=== PATIENT | female | born 1965 | race Two or more races ===

== ENCOUNTER 2019-08-21 07:27 | Day surgery (SDC) | payer OTHER ==
[2019-08-21] VITALS (8 sets, daily range): BP systolic 130–143; BP diastolic 58–86
[~2019-08-21] VITALS: Ht 170.2 cm; Wt 122.5 kg
[~2019-08-21 07:27] MED LIST: LR 1000ml 1,000 ML IVLG SCH
--- NOTE | 2019-08-21 07:40 | Short Stay Surgery H&P ---
History of Present Illness History of Present Illness Chief Complaint Abdominal pains/GERDs.nausea and vomiting HPI Sara Roger is a 54 year old female who was admitted on for Abdominal Pain/ GERDs/nausea/vomiting Patient History Allergies: Coded Allergies: No Known Allergies (Unverified , 08/20/19) Past Surgeries: (1) History of tubal ligation (2) History of hysterectomy (3) History of cyst of breast Review of Systems Cardiovascular: Reports: no symptoms Respiratory: Reports: no symptoms Skeletal: Reports: trauma Gastrointestinal: Reports: gastro esophageal reflux disease Genitourinary: Reports: no symptoms Neurologic: Reports: no symptoms Endocrine: Reports: no symptoms Hematologic: Reports: no symptoms Physical Exam Skin: normal HENT: normal Heart: normal Lungs: normal Abdomen: abnormal Extremities: normal Genitourinary: normal Plan Plan of Care Upper GI endoscopy and biopsy. Preop Interventions None Summary of Findings See the reports Attestation Are the patient's medical conditions optimized for surgery? Attestation Response: yes Seema Ellis MD Aug 21, 2019 07:40
[2019-08-21] MEDS ORDERED: LR 1000ml 1,000 ML IVLG SCH (07:41)
--- NOTE | 2019-08-21 07:41 | Pre-Procedure Note/Attestation ---
Pre-Procedure Note/Attestation Complete Prior to Procedure Planned Procedure: left Procedure Narrative: Examination of the upper GI tract via endoscope Indications for Procedure Pre-Operative Diagnosis: R/O peptic ulcer/gastritis/esophagitis Attestation I attest that I discussed the nature of the procedure; its benefits; risks and complications; and alternatives (and the risks and benefits of such alternatives ), prior to the procedure, with the patient (or the patient's legal career services representative). I attest that, if there was a reasonable possibility of needing a blood transfusion, the patient (or the patient's legal career services representative) was given the [facility] standardized written summary, pursuant to the Sunil Bensley Blood Safety Act ([place] Health and Safety Code # 1645, as amended). I attest that I re-evaluated the patient just prior to the surgery and that there has been no change in the patient's H&P, except as documented below: Seema Ellis MD Aug 21, 2019 07:41
--- NOTE | 2019-08-21 07:44 | Anethesia Preoperative Eval ---
Anesthesia Pre-op PMH/ROS General Date of Evaluation: Aug 21, 2019 Time of Evaluation: 07:43 Anesthesiologist: jannette ASA Score: ASA 2 Mallampati Score Class I : Soft palate, uvula, fauces, pillars visible Class II: Soft palate, uvula, fauces visible Class III: Soft palate, base of uvula visible Class IV: Only hard plate visible Mallampati Classification: Class II Surgeon: ning Diagnosis: abdominal pain Surgical Procedure: egd Anesthesia History: none Social History: smoking - nonsmoker Family History: no anesthesia problems Allergies: Coded Allergies: No Known Allergies (Unverified , 08/21/19) Medications: see eMAR Patient NPO?: Yes Past Medical History Gastrointestinal/Genitourinary: Reports: GERD Other: obesity PSxH Narrative: breast sx, tubal ligation Anesthesia Pre-op Phys. Exam Physician Exam Constitutional: NAD Neurologic: CN 2-12 intact Cardiovascular: RRR Respiratory: CTA Gastrointestinal: S/NT/ND Airway Exam Mallampati Score: Class II MO: limited Neck: short TMD: 2fb ROM: limited Anesthesia Pre-op A/P Risk Assessment & Plan Assessment: asa2 Plan: mac Status Change Before Surgery: No Pre-Antibiotics Drug: Radha Carter MD Aug 21, 2019 07:44
[2019-08-21] MEDS ORDERED: DiphenhydrAMINE 50mg/ml Inj IVP PRN (07:45)
[2019-08-21] MEDS ORDERED: fentaNYL 100 mcg/2 mL IV PRN (07:45)
[2019-08-21] MEDS ORDERED: Atropine Inj 1mg/10ml Syr IV PRN (07:45)
[2019-08-21] MEDS ORDERED: Midazolam 2mg/2ml Inj IVP PRN (07:45)
--- NOTE | 2019-08-21 07:56 | Discharge Instructions ---
Discharge Instructions Discharge Instructions Follow up with: The reports will be sent to carpenter's assistant, no follow up in the office. For Congestive Heart Failure Reminder Report to your physician any weight gain of 5 pounds or more in one week. Seema Ellis MD Aug 21, 2019 07:56
[2019-08-21] MEDS ORDERED: ADVIL200 MG ORAL (07:57)
[2019-08-21] MEDS ORDERED: IBUPROFEN600 MG ORAL (07:57)
[2019-08-21] MEDS ORDERED: LR 1000ml ONE (08:00)
[2019-08-21] MEDS ORDERED: Propofol 200mg/20ml IV ONE ×2 (08:00)
[2019-08-21] MEDS ORDERED: Lidocaine 1% MPF 10mg/ml 5ml ONE (08:00)
[2019-08-21] MEDS ORDERED: DULCOLAX STOOL100 M1 PO (08:09)
[2019-08-21] MEDS ORDERED: GERD MED PO (08:09)
--- NOTE | 2019-08-21 08:32 | Endoscopy Procedure Note ---
Endoscopy Procedure Note General Indication for Procedure: Abdominal pain, nausea,vomiting,heartburn Procedures Performed: EGD - Mild gastriis of the antrum C/W antritis, biopsied. 4mm fundic/hyperplastic polyp in fundus biospied. Specimen: yes Pt Tolerated Procedure Well: Yes Estimated Blood Loss: none Anesthesia Anesthesiologist: Dr. Pike Anesthesia: moderate sedation Medications Medication Given: see anesthesia record Inserted Devices Implant(s) used?: No Quality Quality of Bowel Preparation: Excellent Was there any complications?: No GI Core Measures 50 yrs or older w/o bx or poly: Not Applicable 10yrs. F/U recommended: Not Applicable If not recommended, why?: Med reason:<3 yrs.: System Reason:<3 yrs.: Last colonoscopy >= to 3yrs: No Seema Ellis MD Aug 21, 2019 08:32
--- NOTE | 2019-08-21 09:00 | Immediate Post-Op Evaluation ---
Immediate Post-Op Evalulation Immediate Post-Op Evalulation Procedure: egd w/bx Date of Evaluation: Aug 21, 2019 Time of Evaluation: 08:47 IV Fluids: 200ml lr Blood Products: none Estimated Blood Loss: negligible Blood Pressure Systolic: 138 Blood Pressure Diastolic: 69 Pulse Rate: 72 Respiratory Rate: 18 O2 Sat by Pulse Oximetry: 100 Temperature (Fahrenheit): 98.0 Pain Score (1-10): 0 Nausea: No Vomiting: No Complications none Patient Status: awake, reacts, patent Hydration Status: adequate Drug: Radha Carter MD Aug 21, 2019 09:00
--- NOTE | 2019-08-21 09:01 | 48 Hour Post Anesthesia Eval ---
Post Anesthesia Evaluation Procedure: egd w/bx Date of Evaluation: Aug 21, 2019 Time of Evaluation: 08:49 Blood Pressure Systolic: 138 0: 64 Pulse Rate: 63 Respiratory Rate: 18 Temperature (Fahrenheit): 98.0 O2 Sat by Pulse Oximetry: 100 Airway: patent Nausea: No Vomiting: No Pain Intensity: 0 Hydration Status: adequate Cardiopulmonary Status: stable Mental Status/LOC: patient returned to baseline Post-Anesthesia Complications: none Follow-up care needed: N/A Radha Pike MD Aug 21, 2019 09:01
--- NOTE | 2019-08-21 09:30 | Pre-op HX & Phy Repo 2 SIG ---
DATE OF ADMISSION: 08/21/2019 HISTORY OF PRESENT ILLNESS: The patient is a 54-year-old female who is being seen prior to undergoing the procedure for upper GI endoscopy today. The patient basically is known to me since I have seen her in the past some time in April 2019 when she initially was complaining of experiencing pain over the upper part of the abdomen and having heartburn. Subsequently, the patient was seen in my office a few days ago complaining of periods of heartburn along with nausea and vomiting and discomfort over the upper part of the abdomen radiating towards her chest area. She reported that basically she has been experiencing this condition for some years as she had been taking nonsteroidal anti-inflammatory agents that she is currently is taking at this time as well. She had injury at her job site as she was functioning as a financial legal assistant and subsequently because of the lifting heavy boxes she suffered from back condition and disc situation for which she received physical therapy as well. Currently, she continues to have the pain over her dorsal lumbar area and as such as I mentioned, she is taking nonsteroidal anti-inflammatory agents such as ibuprofen. She denies having any hematemesis, melena, or hematochezia. However, as I mentioned, she does have symptoms of moderately severe heartburn continuously on a daily basis. She denies having any history of weight loss either. She has always been heavy consistent with morbid obesity. She denies having any difficulty swallowing such as dysphagia, odynophagia, etc. PAST MEDICAL HISTORY: The patient basically denies having any major history of medical conditions such as high blood pressure or pancreatitis, pneumonitis, hepatitis, etc. She basically reported to me she has had history of carpal tunnel syndrome. MEDICATIONS: Current medications are ibuprofen 600 mg, Zantac 150 mg, Dulcolax 5 mg, multivitamins, B12, and calcium. SURGICAL HISTORY: The patient has had history of tubal ligation, partial hysterectomy and removal of the cyst from her breast. ALLERGIES: Nonsignificant. HABITS: The patient drinks alcohol minimally, but does not smoke cigarettes and does not use illicit drugs. FAMILY HISTORY: Nonsignificant. REVIEW OF SYSTEMS: Basically history of present illness. She denies having any major chest pain or having shortness of breath or cough or asthma. She does complain, however, of experiencing pain over the shoulders and the lower back area. PHYSICAL EXAMINATION: GENERAL: At this time reveals alert and well-oriented, very pleasant female, who does not seem to be in any acute distress. VITAL SIGNS: Blood pressure 143/86, temperature 98.7, respiratory rate 18 per minute, oxygen saturation 98% on room air, and pulse rate 73 per minute. HEENT: Normocephalic. Pupils are equal in size and reactive to light and accommodation. No visible jaundice. Buccal cavity, tongue midline, well hydrated. No ulcers. NECK: Supple. No JVD, thyromegaly, or adenopathy. CHEST: Clear to auscultation and percussion. No rales or rhonchi. HEART: S1, S2 normal. Regular rhythm. No gallops or murmur. ABDOMEN: Soft but quite obese. There are areas of tenderness over the upper part of the abdomen. There is no organomegaly or palpable mass. No percussion tenderness. EXTREMITIES: Within normal limits. No pretibial edema, cyanosis, or clubbing. CENTRAL NERVOUS SYSTEM: Grossly normal. INITIAL PREOPERATIVE IMPRESSION: 1. Chronic epigastric pain, mostly consistent with chronic gastroesophageal acid reflux, gastroesophageal reflux disease; rule out NSAID-induced gastropathy, peptic ulcer disease, duodenitis, gastritis, or esophagitis. 2. History of nausea and vomiting of uncertain etiology, rule out NSAID-induced gastropathy. 3. Morbid obesity. 4. History of work-related bodily injuries. RECOMMENDATIONS: The applicant at this time seems to be quite stable to undergo the procedure of upper GI endoscopy for which she has been scheduled. She understands the risks and benefits and will sign the consent. Said Ricky Ellis DR: ROME JOB#: [id number] CC:
--- NOTE | 2019-08-21 09:45 | Operative Note - Dictated ---
DATE OF OPERATION: 08/21/2019 SURGEON: Seema Ellis M.D. PROCEDURE: Esophagogastroduodenoscopy with biopsy. PREOPERATIVE DIAGNOSIS: Abdominal pain and chronic gastroesophageal reflux; rule out NSAID-induced gastritis, peptic ulcer disease. POSTOPERATIVE DIAGNOSES: 1. Mild antral gastritis, which was biopsied. 2. A 4 mm fundic-type flat polypoid lesion consistent with hyperplastic polyp biopsied, otherwise normal upper GI endoscopy. MEDICATION USED: Per Dr. Ball, anesthesiologist. INSTRUMENT: GIF Olympus upper GI video endoscope. DESCRIPTION OF PROCEDURE: The patient after arriving in the endoscopy unit, was told about risks and benefits of the procedure, which she accepted and signed informed consent. She was then put in the left lateral decubitus position. After adequate IV sedation, the scope was gently passed through the cricopharyngeal area, was lodged in the upper esophagus and gradually was advanced into the gastroesophageal junction. The entire length of esophagus looked normal and there was no any abnormality such as ulceration, stricture, or varices, etc. The GE junction also looked normal. No evidence of Singer's or hiatal hernia. At this time, the scope was gradually advanced into the stomach. Gastric cavity was distended with insufflation of air. The areas of the fundus and the body and the antrum were examined gradually, and they revealed that there was evidence of a 4 mm flat hyperplastic type polypoid lesion over the posterior part of the stomach approximately 4 or 5 cm below the GE junction. It was consistent with fundic-type polyp and it was biopsied. It looked benign. Upon examination of the rest of the stomach, it only revealed evidence of mild inflammatory process in the antrum and pre-pyloric area, which was biopsied. There was no ulcers, tumors, other lesions. Finally, the scope was passed through normal looking pylorus. First and second portion of duodenum were examined, which also looked normal. Finally, scope was pulled out and the procedure was terminated. The patient tolerated the procedure well and left the endoscopy room in a good condition. Ricky Bennett JOB#: [id number] CC:
== END 2019-08-21 09:40 | disposition home or self-care (01) ==
LOC: GAS 07:27
DX: K29.70 Gastritis, unspecified, without bleeding (principal); K21.9 Gastro-esophageal reflux disease without esophagitis; E66.01 Morbid (severe) obesity due to excess calories; Z90.710 Acquired absence of both cervix and uterus; Z79.899 Other long term (current) drug therapy; Z68.41 Body mass index [BMI] 40.0-44.9, adult
CPT/HCPCS: 43239; J2704; J7120; 94003; 94150